=== PATIENT | male | born 1980 | race Caucasian/White ===

== ENCOUNTER → 2016-12-03 | Outpatient (CLI) | payer BC, OTHER | LOC: CAT 06:25 | DX: K42.9 Umbilical hernia without obstruction or gangrene (principal) ==

== ENCOUNTER 2016-12-17 05:19 | Day surgery (SDC) | payer BC, OTHER ==
[~2016-12-17] VITALS: Ht 185.4 cm; Wt 143.2 kg
--- NOTE | ~2016-12-17 | O ---
[facility] [place] [place] [address] OPERATIVE REPORT Name: ANUJA TOVAR Room #: DEP [facility] M..#: [id number] Admission: 12/17/16 Attend Phys: Trevon Coronel MD Discharge: 12/17/16 Date of : 80 Report #: [id number] THIS REPORT FOR: //name// CC: Coleman Coronel DATE OF SERVICE: 12/17/2016 PREOPERATIVE DIAGNOSIS: Incarcerated ventral hernia. POSTOPERATIVE DIAGNOSES: Incarcerated ventral hernia, as well as diagnosis of intraabdominal adhesions from prior operation. SURGEON: Trevon Coronel MD OPERATION PERFORMED: Robotic repair of incarcerated ventral hernia with mesh, robotic adhesiolysis times 15 minutes. ANESTHESIA: General endotracheal anesthesia and local anesthetic. ESTIMATED BLOOD LOSS: 25 mL. SPECIMENS TO PATHOLOGY: Incarcerated ventral hernia contents. FINDINGS: A 3 cm hernia defect at the umbilicus, containing incarcerated omentum and preperitoneal fat, repaired with primary closure using 0 V-Loc suture, as well as with mesh in an underlay technique, sewn with 0 V-Loc running suture times 3. COMPLICATIONS: None. INDICATION FOR PROCEDURE: The patient is a 36-year-old male patient with a history of umbilical hernia, which has been present for many years. This has been increasing in size and has become more symptomatic. The patient was actually seen approximately one year ago, and at that time, he opted not to undergo surgical repair of this hernia; however, as he is employed at a [employer] and lifts objects frequently, this hernia has become more prominent and uncomfortable for him. He, therefore, sought surgical repair. Detailed discussion of the risks and benefits of the procedure including bleeding, pain, infection, recurrence, damage to surrounding structures including bowel, bladder, colon, and other nearby organs were all possible, although likely given the patient's size with elevated BMI, it was mentioned that, this may increase the chance of recurrence, and that BMI reduction would be ideal to minimize the chance of recurrent hernia. All questions were answered to the patient's and his 's satisfaction. Written informed consent was obtained. DESCRIPTION OF PROCEDURE: The patient was brought to the operating room and [address] [address] OPERATIVE REPORT Name: ANUJA TOVAR Room #: DEP [facility] M.R.#: [id number] Admission: 12/17/16 Attend Phys: Trevon Coronel MD Discharge: 12/17/16 Date of : 80 Report #: [id number] placed in a supine position. Timeout was taken to verify the patient's identity and to plan the procedure. SCDs were in place on the lower extremities bilaterally. Preoperative antibiotics were administered. Anesthesia was induced. The patient was intubated. Abdomen was sterilely prepped and draped in the standard fashion. Right upper quadrant 5 mm incision was created after local anesthetic had been infiltrated. A direct optical access was performed using a 5 mm 0 degree laparoscope and a transparent port with obturator. A pneumoperitoneum was created successfully and inspection of the viscera showed that no injury had occurred upon entry. A 5 mm right lower quadrant port was placed under direct vision and a 12 mm right lateral port was placed under direct vision. Each of these sites had been infiltrated with local anesthetic, prior to placement. There was noted to be some adhesions in the right lower quadrant, consistent with a prior open appendectomy, approximately 30 years ago. Once the 3 right-sided ports had been placed, the bed was rotated approximately 20 degrees counter-clock damian away from anesthesia, and the robotic patient cart was brought into the field. This was docked to the 3 ports successfully. Instruments were inserted and activated properly. Robotic portion of the procedure was then commenced. Adhesions in the right lower quadrant were taken down using electrocautery and sharp dissection. Attention was turned to the hernia defect. There was noted to be an incarcerated omentum, within a 3 cm circumscribed defect at the level of the umbilicus. The omentum was reduced with gentle traction. The peritoneum surrounding the defect was then scored and stripped away circumferentially to expose the fascia. Once this had been performed, the defect itself was closed using running 0 V-Loc suture. At this point, an 11.[address] mesh was rolled into a cylinder and brought into the field Through the 12 mm port. This had the echo positioning system as well. A suture passer had already been passed through the umbilicus, and this was used to elevate the Ventralight into position. This was then anchored to the anterior abdominal wall using running absorbable V-Loc suture times 3. Secure Strap absorbable tacking system was also utilized to further anchor these more central portions of the mesh, against the anterior abdominal wall. Further inspection showed that the hernia defect had excellent coverage circumferentially, and no active bleeding was noted. It should also be noted that some of the preperitoneal fat and omentum, which had been reduced, was passed off as specimen, labeled incarcerated ventral hernia contents. Once hemostasis had again carefully been verified, the patient cart was undocked from the ports, and the 12 mm port was removed. The fascia was closed at that level using a imoruv-[id number]-xusha 0 PDS suture under direct vision. Pneumoperitoneum was then carefully relieved, and the 5 mm ports were discontinued. Further local anesthetic was then infiltrated into each of the 3 port sites. Skin was closed at each of these sites using 4-0 Monocryl subcuticular stitch. Dermabond was applied superficially at each of these 3 sites. At this point, the case was ended, all instrumentation had been extracted and accounted for. All counts were correct per nurse's report. [facility] [address] [place] [address] OPERATIVE REPORT Name: LUIANUJA ROOT Room #: DEP [facility] M.R.#: [id number] Admission: 12/17/16 Attend Phys: Trevon Coronel MD Discharge: 12/17/16 Date of : 80 Report #: [id number] Abdominal binder was placed, as well as a pressure dressing at the level of the umbilicus. The patient was extubated and taken to the postoperative care unit in stable condition. <ELECTRONICALLY SIGNED> By: Trevon Coronel MD 12/19/16 [id number] [id number] Trevon Coronel MD /nt
--- NOTE | ~2016-12-17 | S ---
[facility] [place] [address] SURGICAL PATH RPT PROCEDURE Name: SIDNEY TOVAR Room #: DEP [facility] M.R.#: [id number] Admission: 12/17/16 Date of : 80 Discharge: 12/17/16 Report #: [id number] Path Case #: [id number] PATHOLOGY REPORT COLLECTION DATE: 12/17/2016 RECEIVED DATE: 12/17/2016 SUBMITTING PHYS: Dr. Trevon Coronel OTHER PHYS: Dr. Coleman Garay SPECIMEN(S) RECEIVED: A.Incarcerated hernia contents * * * * * * * * * * * * FINAL DIAGNOSIS: Incarcerated hernia contents, repair: - Dense fibrovascular connective tissue with congestion and reactive changes, compatible with hernia contents. PATHOLOGIST: Gisel Montez M.D. REPORT ELECTRONICALLY SIGNED BY: Gisel Montez M.D. DATE/TIME: 12/19/2016 17:23 * * * * * * * * * * * * GROSS PATHOLOGY: Received in formalin labeled "Sidney Tovar, incarcerated hernia contents," are multiple pieces of fibroadipose tissue admixed with fibromembranous tissue measuring 3.6 x 2.3 x 1.0 cm in aggregate dimensions. No nodules or lesions are identified. [employer] Operator tissue is submitted in cassette A1. (CAA; 12/18/2016) CLINICAL HISTORY: Ventral hernia INITIAL CPT CODE(S): A; 48445 Professional services performed by [facility] at [facility] [address], [place] [address] Technical services performed by [facility] at [address] [place] [address], [address] [address]. [facility] [address] [place] [address] SURGICAL PATH RPT PROCEDURE Name: SIDNEY TOVAR Room #: DEP [facility] M.R.#: [id number] Admission: 12/17/16 Date of : 80 Discharge: 12/17/16 Report #: [id number] Path Case #: [id number] [facility] [place] [id number] [address] PHONE: [phone] DIRECTOR: Garfield Mcgee M.D. * * * END OF REPORT * * *
[~2016-12-17 05:19] MED LIST: CLARITIN10 MG PO
[2016-12-17 07:34] VITALS: BP 139/82
[2016-12-17] MEDS ORDERED: NEURONTIN300 MG PO (10:50)
[2016-12-17] MEDS ORDERED: HYDROCODONE-AP1 EAC6 PO (10:50)
[2016-12-17] MEDS ORDERED: COLACE100 MG PO (10:50)
[2016-12-17 11:06] VITALS: BP 139/82
== END 2016-12-17 12:00 | disposition home or self-care (01) ==
LOC: TBA 05:19 → OR 05:19 → TBA 05:20 → OR 06:21
DX: K43.6 Other and unspecified ventral hernia with obstruction, without gangrene (principal); K66.0 Peritoneal adhesions (postprocedural) (postinfection); Z90.49 Acquired absence of other specified parts of digestive tract
CPT/HCPCS: 49000; 50010; 50101; 50249; 50386; 50555; 50558; 50958; 50962; 50980; 50984; 52265; 54022; 54118; 56525; 56526; 56641; 57092; 62110; 62900; 70005

== ENCOUNTER 2019-08-28 17:02 | Emergency (ER) | payer OTHER ==
[~2019-08-28] VITALS: Ht 185.4 cm; Wt 142.9 kg
[~2019-08-28 17:02] MED LIST changes: +COLACE100 MG PO; +HYDROCODONE-AP1 EAC6 PO; +NEURONTIN300 MG PO
[2019-08-28 18:49] VITALS: BP 148/71
== END 2019-08-28 18:50 | disposition home or self-care (01) ==
LOC: ER 17:02
DX: S61.214A Laceration without foreign body of right ring finger without damage to nail, initial encounter (principal); Z90.89 Acquired absence of other organs; Z90.49 Acquired absence of other specified parts of digestive tract; Z88.0 Allergy status to penicillin; W26.8XXA Contact with other sharp object(s), not elsewhere classified, initial encounter; Y92.89 Other specified places as the place of occurrence of the external cause; Y93.89 Activity, other specified; Y99.0 Civilian activity done for income or pay